=== PATIENT | male | born 1945 | race Caucasian/White ===

== ENCOUNTER 2016-07-19 17:15 | Emergency (ER) | payer MEDICARE, BC ==
[2016-07-19 17:16] VITALS: O2SAT 97
[2016-07-19 17:27] VITALS: BP 146/83; PULSE 88; RESP 18; TEMP 98.2
== END 2016-07-19 18:45 | disposition home or self-care (01) | DRG 125 ==
LOC: ED 17:15
DX: B30.9 Viral conjunctivitis, unspecified (principal)
CPT/HCPCS: 99282

== ENCOUNTER 2016-09-14 13:49 | Outpatient (CLI) | payer MEDICARE, BC | END 2016-09-14 13:50 | disposition home or self-care (01) | DRG 556 | LOC: CONVCARE 13:49 | PROVIDERS: ATTEND Orthopaedic Surgery | DX: M25.522 Pain in left elbow (principal) | CPT/HCPCS: 73070 ==

== ENCOUNTER 2017-07-07 09:59 | Day surgery (SDC) | payer MEDICARE, BC ==
[2017-07-07] MEDS ORDERED: SODIUM CHLORIDE 0.9% FLUSH 10 ML SOL IV ONE (12:08)
[2017-07-07] MEDS ORDERED: LIDOCAINE HCL 1% MPF SOL ONE (12:29)
[2017-07-07] MEDS ORDERED: PROPOFOL 500 MG/50 ML EMU IV ONE (12:29)
[2017-07-07 13:13] VITALS: BP 132/82; PULSE 54; RESP 20; TEMP 97; O2SAT 96
== END 2017-07-07 13:25 | disposition home or self-care (01) | DRG 951 ==
LOC: SURG 09:59
PROVIDERS: ATTEND Surgery
DX: Z12.11 Encounter for screening for malignant neoplasm of colon (principal); K57.30 Diverticulosis of large intestine without perforation or abscess without bleeding; Z86.010 Personal history of colon polyps
CPT/HCPCS: J2001; J2704

== ENCOUNTER 2018-05-16 08:51 | Day surgery (SDC) | payer MEDICARE, BC ==
[~2018-05-16 08:51] MED LIST: LIDOCAINE HCL 1% MPF 30 SOL ONE; PROPOFOL 500 MG/50 ML EMU IV ONE
[2018-05-16 11:27] VITALS: RESP 20
[2018-05-16 12:02] VITALS: BP 136/74; PULSE 56; TEMP 97.5; O2SAT 85
== END 2018-05-16 12:40 | disposition home or self-care (01) | DRG 951 ==
LOC: SURG 08:51
PROVIDERS: ATTEND Surgery
DX: Z86.010 Personal history of colon polyps (principal); K52.9 Noninfective gastroenteritis and colitis, unspecified; L53.8 Other specified erythematous conditions; K57.30 Diverticulosis of large intestine without perforation or abscess without bleeding; K29.70 Gastritis, unspecified, without bleeding; R19.7 Diarrhea, unspecified; R10.9 Unspecified abdominal pain
CPT/HCPCS: J2001; J2704